=== PATIENT | male | born 1975 | race Caucasian/White ===

== ENCOUNTER 2019-01-29 14:40 | Observation (INO) ==
[2019-01-29] MEDS ORDERED: Ondansetron 4 MG/2 ML VIAL IVP PRN (21:07)
[2019-01-29] MEDS: Ketorolac 30 MG/ML VIAL IVP PRN (21:29)
[2019-01-29] MEDS: 0.9 % Sodium Chloride 1,000 ML IVC SCH (21:30)
[2019-01-30] MEDS: 0.9 % Sodium Chloride 1,000 ML IVC SCH (05:40)
[2019-01-30] MEDS: Ketorolac 30 MG/ML VIAL IVP PRN (05:51)
[2019-01-30] MEDS ORDERED: *HR* HYDROmorphone (PF) 1 MG/ML SYRINGE IVP PRN ×2 (08:36→13:33)
[2019-01-30] MEDS ORDERED: *HR* OxyCODONE Immed Rel 5 MG TABLET PO PRN ×2 (08:36→13:33)
[2019-01-30] MEDS ORDERED: *HR* Promethazine 25 MG/ML VIAL IVP PRN ×2 (08:36→13:33)
[2019-01-30] MEDS ORDERED: *HR* Meperidine 25 MG/ML SYRINGE IVP PRN ×2 (08:36→13:33)
[2019-01-30] MEDS ORDERED: Ringers Solution, Lactated 1,000 ML IVC SCH ×2 (08:45→13:33)
[2019-01-30] MEDS ORDERED: *HR* Propofol 200 MG/20 ML VIAL IVP ONE (10:37)
[2019-01-30] MEDS ORDERED: Lidocaine -MPF 2% 2 ML VIAL ONE (10:37)
[2019-01-30] MEDS ORDERED: *HR* FentaNYL (PF) 100 MCG/2 ML VIAL ONE (10:37)
[2019-01-30] MEDS ORDERED: Lidocaine -MPF 4% 5 ML AMPUL ONE (10:37)
[2019-01-30] MEDS: Acetaminophen IV 1,000 MG/100 ML INFUS..BTL IVPB ONE ×2 (10:37→10:58)
[2019-01-30] MEDS ORDERED: *HR* Succinylcholine 200 MG/10 ML VIAL IVP ONE (10:37)
[2019-01-30] MEDS ORDERED: Isovue-300 50ML VIAL ONE (11:31)
[2019-01-30] MEDS ORDERED: ceFAZolin 2,000 MG in Water for inj. (sterile) 20 ML IVP ONE (12:18)
[2019-01-30] MEDS ORDERED: Ketorolac 30 MG/ML VIAL IVP PRN (13:33)
[2019-01-30] MEDS ORDERED: 0.9 % Sodium Chloride 1,000 ML IVC SCH (13:33)
[2019-01-30] MEDS ORDERED: Ondansetron 4 MG/2 ML VIAL IVP PRN (13:33)
[2019-01-30 15:44] VITALS: BP 144/84
[2019-02-05 09:07] LABS: Calculi Mass 2 mg
== END 2019-01-30 16:03 | disposition home or self-care (01) ==
LOC: 3ANU
PROVIDERS: ADMIT Urology; ATTEND Urology